=== PATIENT | female | born 1935 | race Caucasian/White ===

== ENCOUNTER 2017-03-21 17:30 | Inpatient (IN) | payer MEDICARE ==
[2017-03-21] VITALS (7 sets, daily range): BP systolic 154–221; BP diastolic 82–115
[~2017-03-21] VITALS: Ht 160 cm; Wt 75.9 kg
[~2017-03-21 17:30] MED LIST: ASPIRIN CHEWABL81 MG PO; ATENOLOL50 MG PO; Avapro300 MG PO; CLONIDINE0.2 MG PO; HYDROCODON-ACE1 EACH PO; LABETALOL HCL100 MG PO; LEVOTHYROXIN0.025 MG PO; LEVOTHYROXINE0.05 MG PO; NEXICLON X0.09 MG/ML PO; PERCOCET 325 MG1 TA2 PO; SIMVASTATIN5 MG PO; TARKA PO; TRIAMTERENE & H1 CAP PO; VERAPAMIL SR240 M1 PO; VITAMIN D50000 I3 PO
[2017-03-21 18:21] LABS: BASO # 0.1 10*3/uL (0.0-0.1); BASO % 1.3 % (0.0-1.0); EOS # 0.2 10*3/uL (0.0-0.4); EOS % 4.2 % (1.0-4.0); HEMATOCRIT 33.2 % (37.0-47.0); HEMOGLOBIN 10.8 g/dl (12.0-16.0); LYMPH % 24.8 % (27.0-41.0); MEAN CORPUSCULAR HGB CONC 32.5 g/dl (33.0-37.0); MEAN PLATELET VOLUME 10.8 fl (9.6-12.3); MONO # 0.3 10*3/uL (0.1-1.0); MONO % 6.5 % (3.0-9.0); NEUT # 2.4 10*3/uL (2.3-7.9); NEUT % 62.7 % (47.0-73.0); PLATELET COUNT AUTOMATED 153 10*3/uL (130-400); RED BLOOD COUNT 3.86 10*6/uL (4.10-5.10); RED CELL DISTRI WIDTH 14.2 % (0-14.5); WHITE BLOOD COUNT 3.8 10*3/uL (4.8-10.8)
[2017-03-21 18:32] LABS: ACT PARTIAL THROMBO TIME 25.9 SECONDS (20.8-31.5)
[2017-03-21 18:38] LABS: BUN 15 mg/dl (7-24); CHLORIDE 105 mmol/L (98-107); CREATININE 1.02 mg/dL (0.55-1.02); POTASSIUM 3.9 mmol/L (3.5-5.1); SODIUM 140 mmol/L (136-145)
[2017-03-21 18:39] LABS: TROPONIN I < 0.015 ng/ml (<0.045)
[2017-03-21] MEDS ORDERED: LIPITOR10 MG PO (21:13)
[2017-03-21] MEDS ORDERED: OMEPRAZOLE D/R20 MG PO (21:14)
[2017-03-21] MEDS ORDERED: CETIRIZINE10 MG PO (21:15)
[2017-03-21] MEDS ORDERED: HYDROCODONE-AC1 EAC1 PO (21:16)
[2017-03-22] VITALS: BP 177/110
[2017-03-22 00:56] VITALS: BP 210/110
[2017-03-22 06:34] LABS: ALBUMIN 3.8 gm/dl (3.1-4.5); BUN 15 mg/dl (7-24); CHLORIDE 104 mmol/L (98-107); CHOLESTEROL 124 mg/dL (<200); CREATININE 0.86 mg/dL (0.55-1.02); HDL CHOLESTEROL 51 mg/dl (40-60); LDL CHOLESTEROL 52 mg/dL (9-159); PHOSPHOROUS 3.7 mg/dL (2.5-4.9); POTASSIUM 3.8 mmol/L (3.5-5.1); SGOT/AST 16 IU/L (3-35); SGPT/ALT 14 U/L (12-78); SODIUM 142 mmol/L (136-145); TOTAL PROTEIN 6.5 gm/dL (6.4-8.2); TRIGLYCERIDES 107 mg/dl (<150); VLDL CHOLESTEROL 21 mg/dL (6-40)
[2017-03-22 06:36] LABS: BASO % 0.8 % (0.0-1.0); EOS # 0.1 10*3/uL (0.0-0.4); EOS % 3.9 % (1.0-4.0); HEMATOCRIT 30.9 % (37.0-47.0); HEMOGLOBIN 10.3 g/dl (12.0-16.0); LYMPH # 0.8 10*3/uL (1.3-4.4); LYMPH % 22.2 % (27.0-41.0); MEAN CELL VOLUME 85.4 fl (81.0-99.0); MEAN CORPUSCULAR HGB 28.5 pg (27.0-31.0); MEAN CORPUSCULAR HGB CONC 33.3 g/dl (33.0-37.0); MEAN PLATELET VOLUME 10.5 fl (9.6-12.3); MONO # 0.3 10*3/uL (0.1-1.0); NEUT # 2.3 10*3/uL (2.3-7.9); NEUT % 65.8 % (47.0-73.0); PLATELET COUNT AUTOMATED 147 10*3/uL (130-400); RED BLOOD COUNT 3.62 10*6/uL (4.10-5.10); RED CELL DISTRI WIDTH 14.2 % (0-14.5); WHITE BLOOD COUNT 3.6 10*3/uL (4.8-10.8)
[2017-03-22 06:39] LABS: ALKALINE PHOSPHATASE 84 U/L (45-117)
[2017-03-22 07:47] LABS: VITAMIN D, 25-HYDROXY 20.4 ng/mL (30-100)
[2017-03-22 08:28] VITALS: BP 148/84
[2017-03-22 12:03] VITALS: BP 138/88
[2017-03-22] MEDS ORDERED: VITAMIN D-32000 UNI1 PO (13:55)
[2017-03-22] MEDS ORDERED: B12,B-12,B 12500 MC1 PO (13:55)
[2017-03-22] MEDS ORDERED: CLONIDINE0.2 MG PO (13:55)
== END 2017-03-22 14:33 | disposition home or self-care (01) | DRG 305 ==
LOC: ED 17:30 → EDHOLD 19:01 → 5E 19:01
PROVIDERS: Emergency Medicine; Hospitalist
DX: I16.1 Hypertensive emergency (principal); I48.91 Unspecified atrial fibrillation; D64.9 Anemia, unspecified; D72.819 Decreased white blood cell count, unspecified; E03.9 Hypothyroidism, unspecified; E53.8 Deficiency of other specified B group vitamins; G43.909 Migraine, unspecified, not intractable, without status migrainosus; M54.5 Low back pain; G89.29 Other chronic pain; I77.1 Stricture of artery; M19.90 Unspecified osteoarthritis, unspecified site; I11.9 Hypertensive heart disease without heart failure; R91.1 Solitary pulmonary nodule; E55.9 Vitamin D deficiency, unspecified; Z90.89 Acquired absence of other organs; Z83.79 Family history of other diseases of the digestive system; Z88.6 Allergy status to analgesic agent; Z79.82 Long term (current) use of aspirin; Z79.899 Other long term (current) drug therapy; K59.09 Other constipation

== ENCOUNTER 2017-09-14 19:22 | Inpatient (IN) | payer MEDICARE ==
[~2017-09-14] VITALS: Ht 160 cm; Wt 74.8 kg
--- NOTE | ~2017-09-14 | EKG ---
[place], [place] ELECTROCARDIOGRAM REPORT NAME: DORIS JOVEL UNIT #: [id number] ROOM: 419 DOCTOR: EPIPHANY DRAFT REPORT BIRTHDATE: [birth year] [facility] Test Date: 2017-09-14 Test Time: 20:25:40 Pat Name: DORIS JOVEL Department: Room: [facility] Gender: F [employer]: EKG.GA : 1935 Requested By: DAVID LANGSTON Order Number: [id number] Reading MD: Graciela Fair MD Measurements Intervals [place] Rate: 76 P: ME: QRS: -9 QRSD: 83 T: 33 QT: 471 QTc: 530 Interpretive Statements Atrial fibrillation Borderline T wave abnormalities Prolonged QT interval Electronically Signed On 09-16-2017 11:10:08 PDT by Graciela Fair MD CM:EKGRPT:ELECTROCARDIOGRAM REPORT 24 1110 DAVID LANGSTON EPIPHANY DRAFT REPORT DAVID LANGSTON
--- NOTE | ~2017-09-14 | PR ---
[place], [place] [facility]GRESS NOTE [id number] UNIT #: [id number] ROOM: 419 DOCTOR: BENSON CHRISTIANSON MD BIRTHDATE: [birth year] DOS: 09/22/2017 SUBJECTIVE: Cynthia Hong was seen at her bedside today, 09/23/2017 with family in attendance. She is feeling well. Unfortunately, she has been noted to have draining from her incision. We were asked to consider decreasing the dose of Pradaxa. It is my understanding that you either used the drug or you do not. Low doses of the drug have never been shown to be effective and probably would not change the risk of bleeding. I asked that Dr. Norton be asked if she felt that the risk to the incision was greater than the patient's risk for DVT when she considered those options she said to continue the anticoagulation for now. The patient denies any palpitations, lightheadedness, syncope, orthopnea or PND. She is anxious to go to rehab within the next 24 hours. We have been able to wean her off of IV diltiazem and her heart rate remains controlled. PHYSICAL EXAMINATION: VITAL SIGNS: Today, her pulse is 98 and irregularly irregular. Blood pressure is 156/87. She is afebrile. NECK: Supple. She has no jugular distention. Carotids are full. LUNGS: Respirations are unlabored. Her chest is clear. HEART: Has an irregularly irregular rhythm without murmurs or gallops. ABDOMEN: Soft and normally active. EXTREMITIES: Showed trace edema. IMPRESSION: 1. Permanent atrial fibrillation. 2. Rapid ventricular response to atrial fibrillation, exacerbated by her recent fall, hip fracture and surgery. 3. Essential hypertension. 4. Mechanical fall with hip fracture, prompting current admission, the patient has had a hip fracture repair this admission. 5. Hypothyroidism. PLAN: I will switch her now from short acting diltiazem to diltiazem CD to simplify her medical regimen. I would prefer that she stay on the Pradaxa; however, if it looks like this is going to impede wound healing and if Dr. Norton feels that her risk for deep venous thrombosis is low, the drug can be stopped temporarily. It would be my preference that it be continued, however. Hopefully, she will be able to transfer to a rehab facility within the next 24 hours. I thank the hospitalist physicians for asking our advice regarding her care. [place], [place] PROGRESS NOTE NAME: CYNTHIA HONG UNIT #: [id number] ROOM: 419 DOCTOR: BENSON CHRISTIANSON MD BIRTHDATE: [birth year] BENSON CHRISTIANSON MD CM:PNTRANS [id number] BENSON CHRISTIANSON MD 09/24/17 1728 interface
--- NOTE | ~2017-09-14 | O ---
[place], [place] OPERATIVE NOTE [id number] UNIT #: [id number] ROOM: 419 DOCTOR: VITOR NORTON DO BIRTHDATE: [birth year] DOS: 09/18/2017 PREOPERATIVE DIAGNOSIS: Right hip femoral neck fracture with 100% displacement. POSTOPERATIVE DIAGNOSIS: Right hip femoral neck fracture with 100% displacement. PROCEDURE: Right hip hemiarthroplasty. SURGEON: Vitor Norton DO. BUTTON SEWER: Cristopher Penn. ANESTHESIA: Tyshawn Abrams CRNA. TYPE OF ANESTHESIA: General endotracheal intubation. INDICATIONS: The patient is an 82-year-old female with a history of fall at her home several days ago suffering a fracture of the right femoral neck with displacement. The risks and benefits of the procedure were explained to the patient and her family preoperatively. Preoperative labs and x-rays were obtained. Surgery was delayed several days due to mental status change and tachycardia from atrial fibrillation. Preoperative medical and cardiac optimization was obtained. PROCEDURE: The right hip was marked in the holding room. The patient was brought to the operative suite. A general anesthetic with endotracheal intubation was performed. The patient was placed in a lateral decubitus position and positioned with the peg board or [place] positioner. The timeout was performed. The patient received Rocephin 1 g IV piggyback. The right lower extremity was prepped and draped in the usual orthopedic fashion. The posterior or southern incision was planned. This was marked with a marking pen. The area was injected with Marcaine 0.5% with epinephrine. The incision was made sharply with a scalpel. Subcutaneous tissue was spread down to the level of the gluteus fascia. Gluteus fascia was divided along its fibers and gluteus muscle was divided bluntly along the fibers. The greater trochanteric bursa was identified and debrided. The extremity was internally rotated and the piriformis was identified and tagged. The short external rotators were released from their insertion on the greater trochanter and retracted posteriorly. The capsule was identified and released in a T-shaped fashion. The fracture site was identified. The calcar cut was made with an oscillating saw. Osteotome was used to complete the cut. The femoral head was removed using a large Steinmann pin and a skid. This was taken to the back table to be measured. The box osteotome followed by the lateralizing reamer were utilized to aid in positioning of the broaches. The broaches were placed with attention to anteversion beginning with an 8 and progressing to a 13. Size 13 was noted to have adequate fit and fill as well as stability. [place], [place] OPERATIVE NOTE NAME: DORIS JOVEL UNIT #: [id number] ROOM: [facility] DOCTOR: VITOR NORTON DO BIRTHDATE: [birth year] The trials were utilized with a negative neck length and a neutral neck length with a 28 mm inner diameter and a 49 mm outer diameter bipolar trial. The hip was reduced and taken through a range of motion with extension and flexion past 90, internal and external rotation as well as shucking. There was noted to be excellent stability about the hip. The area was copiously irrigated with normal saline. The trials were removed. Further irrigation was performed. The acetabulum was evaluated for any remaining bony debris. The prosthesis was placed using a Biomet Echo standard femoral stem, size 13, which was pressfit into place. This was followed by cold welding of the modular head component, 28 mm neutral length with the bipolar 49 mm outer and 28 mm inner diameter. When this was cold welded into place, the stability was evaluated manually and found to be intact. The hip was then taken again through the range of motion with flexion past 90, internal and external rotation and shucking. There was noted to be excellent stability and range of motion. The area was again irrigated with normal saline and closed in a layered fashion with 0 Vicryl for the short external rotators followed by 0 Vicryl for the gluteus fascia, 2-0 Vicryl for the adipose layer and skin shy. The area was again injected with Marcaine 0.5% with epinephrine. The dressing was applied with Xeroform, 4 x 4s, ABD and Tegaderm. The abduction pillow was put into place. The patient was returned to a supine position. The anesthetic was reversed. The patient was extubated and taken to recovery room in satisfactory condition. Sponge and needle count correct. ESTIMATED BLOOD LOSS: 200 mL. SPECIMENS: Femoral head. DRAINS: None. PACKING: None. IMPLANTS: Echo Bi-Metric hip system standard femoral stem, size 13, RingLoc bipolar hip system, 29 mm outer diameter and 28 mm inner diameter, modular head component 28 mm and 0 length. FINDINGS: Fracture of the right femoral neck with displacement. COMPLICATIONS: None. [place], [place] OPERATIVE NOTE NAME: ALONSOTOLU SerranoDORIS E UNIT #: [id number] ROOM: [facility] DOCTOR: VITOR NORTON DO BIRTHDATE: [birth year] VITOR NORTON DO CM:OPRECORD:OPERATIVE NOTE [id number] VITOR NORTON DO 09/18/17 1100 interface
--- NOTE | ~2017-09-14 | PR ---
[place], [place] PROGRESS NOTE [id number] UN[facility] #: [id number] ROOM: 419 DOCTOR: BENSON CHRISTIANSON MD BIRTHDATE: [birth year] DOS: 09/21/2017 CARDIOLOGY PROGRESS NOTE The patient was seen at her bedside today 09/21/2017 with her daughter in attendance. She is now several days post-repair of her hip fracture. We are still adjusting medications to control the rate response to her atrial fibrillation. She was placed on labetalol as she was on prior to her admission, but her heart rate still remains over 100 at rest when diltiazem is weaned. In order to protect her from a DVT as well as stroke prophylaxis, I did place her on a direct oral anticoagulant yesterday. The family insisted that we use an agent that has a reversal drug available, so I started Pradaxa 150 mg twice a day, Praxbind is available and works immediately to reverse the effects dabigatran. PHYSICAL EXAMINATION: VITAL SIGNS: Today, her pulse is 100 and irregularly irregular. Blood pressure is 132/60. She is afebrile. She weighs 74.8 kg and has a body mass index 29.2. HEENT: Normocephalic and atraumatic. Extraocular muscles are intact. Sclerae are clear. Pupils are equal, round and react to light. Oral mucosa is moist. Tongue is midline. NECK: Supple. She has no jugular distention or hepatojugular reflux. Carotids are full. LUNGS: Respirations are unlabored. Chest is clear to auscultation and percussion. HEART: Has an irregularly irregular rhythm without murmurs or gallops. ABDOMEN: Soft and normally active. EXTREMITIES: Showed trace edema. IMPRESSION: 1. Permanent atrial fibrillation. 2. Rapid ventricular response to atrial fibrillation, exacerbated by her recent fall, hip fracture, and surgery. 3. Essential hypertension. 4. Mechanical fall with hip fracture, prompting current admission. The patient is status post hip fracture repair. 5. Hypothyroidism. PLAN: I will add oral diltiazem to her regimen. Hopefully, we can wean her off the intravenous diltiazem and she can be discharged to rehab after that. We will continue her dabigatran for stroke and DVT prophylaxis. I thank the hospitalist physicians for asking our advice regarding her care. [place], [place] PROGRESS NOTE NAME: DORIS JOVEL UNIT #: [id number] ROOM: 419 DOCTOR: BENSON CHRISTIANSON MD BIRTHDATE: [birth year] BENSON CHRISTIANSON MD CM:PNTRANS [id number] BENSON CHRISTIANSON MD 09/22/17 0315 interface
--- NOTE | ~2017-09-14 | PR ---
[place], [place] PROGRESS NOTE NAME: DORIS JOVEL [facility] #: [id number] UNIT #: [id number] ROOM: 419 DOCTOR: BENSON CHRISTIANSON MD BIRTHDATE: [birth year] DOS: 09/17/2017 CARDIOLOGY PROGRESS NOTE SUBJECTIVE: The patient was seen at her bedside today with her daughter and granddaughter in attendance. She is an 82-year-old woman who does have a history of atrial fibrillation, but has refused anticoagulation. She does take an aspirin. She presents to the hospital now after a trip and fall injury that resulted in a right hip fracture. The accident occurred on 09/15/2017 but repair of the fracture has been delayed because the patient was bradycardic and had altered mental status. Today, she is awake and alert. Her white count has been elevated at 14,000, but she is being treated for urinary tract infection. A CAT scan of the chest, abdomen and pelvis showed no acute pathology such as pneumonia, etc. PHYSICAL EXAMINATION: VITAL SIGNS: Her pulse is 110 and irregularly irregular. Blood pressure is 160/80. She is afebrile. She weighs 74.8 kilograms. NECK: Supple. She has no jugular distention. Carotids are full. LUNGS: Respirations are unlabored. Her chest has decreased breath sounds at the bases, but otherwise is clear. HEART: Has an irregularly irregular rhythm. She has no obvious murmurs or gallops. ABDOMEN: Soft and normally active. EXTREMITIES: Showed no edema. The right leg is foreshortened and externally rotated. IMPRESSION: 1. Mechanical fall. 2. Closed right hip fracture. 3. Chronic atrial fibrillation (possibly permanent). 4. History of hypertension. 5. History of hypothyroidism. PLAN: The patient has known about atrial fibrillation for some time, but she refuses all anticoagulants aside from aspirin. She does note that she has been informed that she will require anticoagulation postoperatively to prevent DVT, but it is not clear if she will allow us to continue it long-term. For now, we will work to control her heart rate. I discussed her case with Dr. Emerson Alicea. Since she is going to surgery today, I would like to treat her with IV medications and I think diltiazem would be the easiest to control. We will give her a small bolus and infusion and then I think that she can go to surgery safely from a cardiac standpoint. We will continue to assist with control of her heart rate postoperatively and I would think that she would be an excellent candidate for a direct oral anticoagulant such as rivaroxaban post-surgery to help prevent DVT immediately and help prevent stroke long-term. We thank the hospitalist physicians for asking our advice regarding her care. [place], [place] PROGRESS NOTE NAME: TOLU JOVELASHLYN Tamez UNIT #: [id number] ROOM: 419 DOCTOR: BENSON CHRISTIANSON MD BIRTHDATE: [birth year] BENSON CHRISTIANSON MD CM:PNTRANS [id number] BENSON CHRISTIANSON MD 09/17/17 2003 interface
--- NOTE | ~2017-09-14 | PR ---
[place], [place] PROGRESS NOTE NAME: DORIS JOVEL UNIT #: [id number] ROOM: 419 DOCTOR: BENSON CHRISTIANSON MD BIRTHDATE: [birth year] DOS: CARDIOLOGY PROGRESS NOTE SUBJECTIVE: The patient was seen at her bedside today, 09/22/2017 with family member in attendance. She is awake and alert and in very good spirits. She states that she feels much better and has been able to ambulate around the room with assistance and a walker. She is using a bedside commode without difficulty. Her monitor does show that her rates have been much better controlled and currently at rest, her heart rate is about 85. Unfortunately, she still is on a small dose of diltiazem intravenously. PHYSICAL EXAMINATION: VITAL SIGNS: Today, her pulse is 85 and irregularly irregular. Blood pressure is 150/88. She weighs 74.8 kg and has a body mass index of 29.2. NECK: Supple. She has no jugular distention. Carotids are full. LUNGS: Respirations are unlabored. Her chest is clear. HEART: Has an irregularly irregular rhythm without murmurs or gallops. ABDOMEN: Benign. EXTREMITIES: Showed no edema. She does seem to be doing better from a cardiac standpoint. PROBLEMS: Include: 1. Permanent atrial fibrillation. 2. Rapid ventricular response to atrial fibrillation, exacerbated by her recent fall, hip fracture and surgery. 3. Essential hypertension. 4. Mechanical fall with hip fracture, prompting current admission. The patient has had her hip fracture repaired. 5. Hypothyroidism. PLAN: We will increase her oral diltiazem and stop intravenous diltiazem today. Hopefully, she can be discharged to home within the next 24-48 hours. She will continue dabigatran for stroke and DVT prophylaxis. I thank the hospitalist physicians for asking our advice regarding her care. [place], [place] PROGRESS NOTE NAME: ALONSOTOLU SerranoDORIS E UNIT #: [id number] ROOM: 419 DOCTOR: BENSON CHRISTIANSON MD BIRTHDATE: [birth year] BENSON CHRISTIANSON MD CM:PNTRANS [id number] BENSON CHRISTIANSON MD 09/23/17 1148 interface
[~2017-09-14 19:22] MED LIST changes: +B12,B-12,B 12500 MC1 PO; +CETIRIZINE10 MG PO; +HYDROCODONE-AC1 EAC1 PO; +LIPITOR10 MG PO; +OMEPRAZOLE D/R20 MG PO; +VITAMIN D-32000 UNI1 PO
[2017-09-14 19:40] VITALS: BP 120/83
[2017-09-14 20:30] VITALS: BP 146/60
[2017-09-14 21:28] VITALS: BP 150/94
[2017-09-14 21:36] LABS: BASO % 0.2 % (0.0-1.0); EOS % 0.3 % (1.0-4.0); HEMATOCRIT 36.7 % (37.0-47.0); HEMOGLOBIN 11.6 g/dl (12.0-16.0); LYMPH # 0.8 10*3/uL (1.3-4.4); LYMPH % 6.6 % (27.0-41.0); MEAN CELL VOLUME 90.8 fl (81.0-99.0); MEAN CORPUSCULAR HGB 28.7 pg (27.0-31.0); MEAN CORPUSCULAR HGB CONC 31.6 g/dl (33.0-37.0); MEAN PLATELET VOLUME 10.6 fl (9.6-12.3); MONO # 0.5 10*3/uL (0.1-1.0); MONO % 4.5 % (3.0-9.0); NEUT # 10.3 10*3/uL (2.3-7.9); PLATELET COUNT AUTOMATED 163 10*3/uL (130-400); RED BLOOD COUNT 4.04 10*6/uL (4.10-5.10); RED CELL DISTRI WIDTH 14.4 % (0-14.5); WHITE BLOOD COUNT 11.7 10*3/uL (4.8-10.8)
[2017-09-14 21:45] LABS: ACT PARTIAL THROMBO TIME 24.3 SECONDS (20.8-31.5)
[2017-09-14 22:00] VITALS: BP 182/83; BP 183/83
[2017-09-14 22:01] LABS: ALBUMIN 3.6 gm/dl (3.1-4.5); ALKALINE PHOSPHATASE 82 U/L (45-117); BUN 18 mg/dl (7-24); CHLORIDE 111 mmol/L (98-107); CREATININE 0.92 mg/dL (0.55-1.02); SGOT/AST 22 IU/L (3-35); SGPT/ALT 19 U/L (12-78); SODIUM 141 mmol/L (136-145); TOTAL PROTEIN 6.4 gm/dL (6.4-8.2)
[2017-09-14 22:02] LABS: TROPONIN I < 0.015 ng/ml (<0.045)
[2017-09-14] MEDS ORDERED: ZYRTEC10 MG PO (23:08)
[2017-09-14] MEDS ORDERED: PRILOSEC20 M1 PO (23:10)
[2017-09-14] MEDS ORDERED: ASPIRIN CHEWABL81 MG PO (23:46)
[2017-09-15] VITALS: BP 176/79
[2017-09-15 00:05] VITALS: BP 154/94
[2017-09-15 06:54] LABS: HEMATOCRIT 39.9 % (37.0-47.0); HEMOGLOBIN 12.7 g/dl (12.0-16.0); MEAN CELL VOLUME 89.5 fl (81.0-99.0); MEAN CORPUSCULAR HGB 28.5 pg (27.0-31.0); MEAN CORPUSCULAR HGB CONC 31.8 g/dl (33.0-37.0); MEAN PLATELET VOLUME 10.7 fl (9.6-12.3); PLATELET COUNT AUTOMATED 160 10*3/uL (130-400); RED BLOOD COUNT 4.46 10*6/uL (4.10-5.10); RED CELL DISTRI WIDTH 14.4 % (0-14.5)
[2017-09-15 07:22] LABS: OVALOCYTES FEW; PLATELET SUFFICIENCY NORMAL (NORMAL); POLYCHROMASIA SLIGHT; TOTAL CELLS COUNTED 100 #CELLS
[2017-09-15 07:24] LABS: ALBUMIN 3.7 gm/dl (3.1-4.5); ALKALINE PHOSPHATASE 85 U/L (45-117); BUN 19 mg/dl (7-24); CHLORIDE 108 mmol/L (98-107); CHOLESTEROL 122 mg/dL (<200); CREATININE 0.94 mg/dL (0.55-1.02); HDL CHOLESTEROL 60 mg/dl (40-60); LDL CHOLESTEROL 48 mg/dL (9-159); POTASSIUM 4.3 mmol/L (3.5-5.1); SGOT/AST 26 IU/L (3-35); SGPT/ALT 18 U/L (12-78); SODIUM 143 mmol/L (136-145); TOTAL PROTEIN 6.8 gm/dL (6.4-8.2); TRIGLYCERIDES 70 mg/dl (<150); VLDL CHOLESTEROL 14 mg/dL (6-40)
[2017-09-15 07:30] LABS: THYROID STIM HORMONE (HS) 0.919 uIU/ml (0.358-4.75)
[2017-09-15 08:29] LABS: VITAMIN D, 25-HYDROXY 23.4 ng/mL (30-100)
[2017-09-15 09:52] LABS: BILIRUBIN NEGATIVE (NEGATIVE); BLOOD 2+ (NEGATIVE); CLARITY SL CLOUDY (CLEAR); COLOR YELLOW (YELLOW); GLUCOSE NEGATIVE (NEGATIVE); KETONE TRACE (NEGATIVE); LEUKO ESTERASE TRACE (NEGATIVE); NITRITE NEGATIVE (NEGATIVE); SPECIFIC GRAVITY >= 1.030 (1.005-1.030); UROBILINOGEN 0.2 E.U./dl (0.2-1.0)
[2017-09-15 10:03] LABS: CALCIUM OXALATE CRYSTALS 1+; MUCOUS 1+
[2017-09-15 12:00] VITALS: BP 180/82
[2017-09-15 16:00] VITALS: BP 152/92
[2017-09-15] MEDS ORDERED: CLONIDINE0.2 MG PO (19:49)
[2017-09-15] MEDS ORDERED: VERAPAMIL HYDR300 MG PO (19:51)
[2017-09-15 20:00] VITALS: BP 132/70
[2017-09-16] VITALS (7 sets, daily range): BP systolic 105–153; BP diastolic 40–89
[2017-09-16 07:14] LABS: BASO % 0.2 % (0.0-1.0); EOS # 0.1 10*3/uL (0.0-0.4); EOS % 0.8 % (1.0-4.0); HEMATOCRIT 34.4 % (37.0-47.0); LYMPH # 0.9 10*3/uL (1.3-4.4); LYMPH % 6.2 % (27.0-41.0); MEAN CELL VOLUME 92.5 fl (81.0-99.0); MEAN CORPUSCULAR HGB 28.5 pg (27.0-31.0); MEAN CORPUSCULAR HGB CONC 30.8 g/dl (33.0-37.0); MEAN PLATELET VOLUME 10.9 fl (9.6-12.3); MONO % 7.2 % (3.0-9.0); NEUT % 84.3 % (47.0-73.0); RED BLOOD COUNT 3.72 10*6/uL (4.10-5.10); RED CELL DISTRI WIDTH 14.6 % (0-14.5); WHITE BLOOD COUNT 14.2 10*3/uL (4.8-10.8)
[2017-09-16 07:17] LABS: HEMOGLOBIN 10.6 g/dl (12.0-16.0); PLATELET COUNT AUTOMATED 121 10*3/uL (130-400)
[2017-09-16 07:49] LABS: POTASSIUM 4.9 mmol/L (3.5-5.1)
[2017-09-16 08:07] LABS: CREATININE 1.28 mg/dL (0.55-1.02); PHOSPHOROUS 4.1 mg/dL (2.5-4.9)
[2017-09-17] VITALS: BP 161/80
[2017-09-17 06:21] LABS: BASO % 0.1 % (0.0-1.0); EOS # 0.1 10*3/uL (0.0-0.4); EOS % 0.3 % (1.0-4.0); HEMATOCRIT 38.1 % (37.0-47.0); HEMOGLOBIN 12.1 g/dl (12.0-16.0); LYMPH # 0.9 10*3/uL (1.3-4.4); LYMPH % 6.4 % (27.0-41.0); MEAN CELL VOLUME 90.7 fl (81.0-99.0); MEAN CORPUSCULAR HGB 28.8 pg (27.0-31.0); MEAN CORPUSCULAR HGB CONC 31.8 g/dl (33.0-37.0); MEAN PLATELET VOLUME 11.6 fl (9.6-12.3); MONO # 1.1 10*3/uL (0.1-1.0); MONO % 7.2 % (3.0-9.0); NEUT # 12.4 10*3/uL (2.3-7.9); NEUT % 85.5 % (47.0-73.0); PLATELET COUNT AUTOMATED 104 10*3/uL (130-400); RED CELL DISTRI WIDTH 14.5 % (0-14.5); WHITE BLOOD COUNT 14.6 10*3/uL (4.8-10.8)
[2017-09-17 06:53] LABS: ALBUMIN 2.7 gm/dl (3.1-4.5); ALKALINE PHOSPHATASE 68 U/L (45-117); BUN 29 mg/dl (7-24); CHLORIDE 107 mmol/L (98-107); POTASSIUM 4.7 mmol/L (3.5-5.1); SGOT/AST 36 IU/L (3-35); SGPT/ALT 23 U/L (12-78); SODIUM 136 mmol/L (136-145)
[2017-09-17 08:00] VITALS: BP 152/88
[2017-09-17 12:00] VITALS: BP 173/86
[2017-09-17 14:26] VITALS: BP 162/88
[2017-09-17 16:00] VITALS: BP 122/89
[2017-09-17 20:00] VITALS: BP 130/86
[2017-09-18] VITALS (17 sets, daily range): BP systolic 130–186; BP diastolic 70–102
[2017-09-18 05:29] LABS: BASO % 0.2 % (0.0-1.0); EOS % 0.3 % (1.0-4.0); HEMATOCRIT 37.9 % (37.0-47.0); HEMOGLOBIN 12.1 g/dl (12.0-16.0); LYMPH # 0.5 10*3/uL (1.3-4.4); LYMPH % 4.4 % (27.0-41.0); MEAN CELL VOLUME 88.8 fl (81.0-99.0); MEAN CORPUSCULAR HGB 28.3 pg (27.0-31.0); MEAN CORPUSCULAR HGB CONC 31.9 g/dl (33.0-37.0); MEAN PLATELET VOLUME 11.7 fl (9.6-12.3); MONO # 0.8 10*3/uL (0.1-1.0); MONO % 6.7 % (3.0-9.0); NEUT # 10.7 10*3/uL (2.3-7.9); NEUT % 87.9 % (47.0-73.0); PLATELET COUNT AUTOMATED 133 10*3/uL (130-400); RED BLOOD COUNT 4.27 10*6/uL (4.10-5.10); RED CELL DISTRI WIDTH 14.3 % (0-14.5); WHITE BLOOD COUNT 12.2 10*3/uL (4.8-10.8)
[2017-09-18 05:46] LABS: BUN 23 mg/dl (7-24); CHLORIDE 108 mmol/L (98-107); CREATININE 0.57 mg/dL (0.55-1.02); POTASSIUM 3.8 mmol/L (3.5-5.1); SODIUM 140 mmol/L (136-145)
[2017-09-19] VITALS (14 sets, daily range): BP systolic 148–183; BP diastolic 76–90
[2017-09-19 06:16] LABS: BUN 26 mg/dl (7-24); CHLORIDE 107 mmol/L (98-107); POTASSIUM 4.1 mmol/L (3.5-5.1); SODIUM 140 mmol/L (136-145)
[2017-09-19 08:05] LABS: BASO % 0.1 % (0.0-1.0); HEMATOCRIT 33.5 % (37.0-47.0); HEMOGLOBIN 10.8 g/dl (12.0-16.0); LYMPH # 0.6 10*3/uL (1.3-4.4); LYMPH % 5.3 % (27.0-41.0); MEAN CELL VOLUME 88.4 fl (81.0-99.0); MEAN CORPUSCULAR HGB 28.5 pg (27.0-31.0); MEAN CORPUSCULAR HGB CONC 32.2 g/dl (33.0-37.0); MEAN PLATELET VOLUME 11.5 fl (9.6-12.3); MONO # 0.8 10*3/uL (0.1-1.0); MONO % 8.1 % (3.0-9.0); NEUT # 8.9 10*3/uL (2.3-7.9); NEUT % 85.7 % (47.0-73.0); RED BLOOD COUNT 3.79 10*6/uL (4.10-5.10); RED CELL DISTRI WIDTH 14.7 % (0-14.5); WHITE BLOOD COUNT 10.4 10*3/uL (4.8-10.8)
[2017-09-19 08:06] LABS: PLATELET COUNT AUTOMATED 175 10*3/uL (130-400)
[2017-09-19 10:47] LABS: BILIRUBIN NEGATIVE (NEGATIVE); BLOOD TRACE-INTACT (NEGATIVE); CLARITY CLEAR (CLEAR); COLOR YELLOW (YELLOW); GLUCOSE NEGATIVE (NEGATIVE); KETONE 1+ (NEGATIVE); LEUKO ESTERASE NEGATIVE (NEGATIVE); NITRITE NEGATIVE (NEGATIVE); PH 5.5 (5.0-9.0); UROBILINOGEN 0.2 E.U./dl (0.2-1.0)
[2017-09-19 11:14] LABS: CALCIUM OXALATE CRYSTALS 1+
[2017-09-20] VITALS (12 sets, daily range): BP systolic 132–173; BP diastolic 62–86
[2017-09-20 06:26] LABS: BASO % 0.1 % (0.0-1.0); HEMATOCRIT 29.2 % (37.0-47.0); HEMOGLOBIN 9.5 g/dl (12.0-16.0); LYMPH # 0.8 10*3/uL (1.3-4.4); LYMPH % 9.7 % (27.0-41.0); MEAN CORPUSCULAR HGB CONC 32.5 g/dl (33.0-37.0); MEAN PLATELET VOLUME 11.5 fl (9.6-12.3); MONO # 0.8 10*3/uL (0.1-1.0); MONO % 9.4 % (3.0-9.0); NEUT # 6.8 10*3/uL (2.3-7.9); NEUT % 79.3 % (47.0-73.0); PLATELET COUNT AUTOMATED 185 10*3/uL (130-400); RED BLOOD COUNT 3.28 10*6/uL (4.10-5.10); RED CELL DISTRI WIDTH 14.9 % (0-14.5); WHITE BLOOD COUNT 8.6 10*3/uL (4.8-10.8)
[2017-09-20 06:34] LABS: BUN 23 mg/dl (7-24); CHLORIDE 104 mmol/L (98-107); CREATININE 0.74 mg/dL (0.55-1.02); POTASSIUM 3.8 mmol/L (3.5-5.1); SODIUM 137 mmol/L (136-145)
[2017-09-21] VITALS (12 sets, daily range): BP systolic 130–158; BP diastolic 60–84
[2017-09-21 06:15] LABS: BASO % 0.1 % (0.0-1.0); EOS # 0.1 10*3/uL (0.0-0.4); HEMATOCRIT 28.9 % (37.0-47.0); HEMOGLOBIN 9.3 g/dl (12.0-16.0); LYMPH # 1.2 10*3/uL (1.3-4.4); LYMPH % 16.5 % (27.0-41.0); MEAN CELL VOLUME 88.7 fl (81.0-99.0); MEAN CORPUSCULAR HGB 28.5 pg (27.0-31.0); MEAN CORPUSCULAR HGB CONC 32.2 g/dl (33.0-37.0); MEAN PLATELET VOLUME 10.7 fl (9.6-12.3); MONO # 0.8 10*3/uL (0.1-1.0); MONO % 10.6 % (3.0-9.0); NEUT % 69.4 % (47.0-73.0); PLATELET COUNT AUTOMATED 182 10*3/uL (130-400); RED BLOOD COUNT 3.26 10*6/uL (4.10-5.10); RED CELL DISTRI WIDTH 14.8 % (0-14.5); WHITE BLOOD COUNT 7.2 10*3/uL (4.8-10.8)
[2017-09-22] VITALS (11 sets, daily range): BP systolic 107–156; BP diastolic 70–88
[2017-09-23] VITALS: BP 158/86
[2017-09-23 06:22] LABS: BASO % 0.2 % (0.0-1.0); EOS # 0.3 10*3/uL (0.0-0.4); EOS % 4.6 % (1.0-4.0); HEMATOCRIT 27.6 % (37.0-47.0); LYMPH # 1.1 10*3/uL (1.3-4.4); LYMPH % 16.6 % (27.0-41.0); MEAN CELL VOLUME 88.2 fl (81.0-99.0); MEAN CORPUSCULAR HGB 28.8 pg (27.0-31.0); MEAN CORPUSCULAR HGB CONC 32.6 g/dl (33.0-37.0); MEAN PLATELET VOLUME 10.9 fl (9.6-12.3); MONO # 0.4 10*3/uL (0.1-1.0); MONO % 5.9 % (3.0-9.0); NEUT # 4.4 10*3/uL (2.3-7.9); NEUT % 69.7 % (47.0-73.0); RED BLOOD COUNT 3.13 10*6/uL (4.10-5.10); RED CELL DISTRI WIDTH 15.2 % (0-14.5); WHITE BLOOD COUNT 6.3 10*3/uL (4.8-10.8)
[2017-09-23 06:23] LABS: PLATELET COUNT AUTOMATED 265 10*3/uL (130-400)
[2017-09-23 06:30] LABS: BUN 7 mg/dl (7-24); CHLORIDE 109 mmol/L (98-107); CREATININE 0.52 mg/dL (0.55-1.02); POTASSIUM 3.6 mmol/L (3.5-5.1); SODIUM 143 mmol/L (136-145)
[2017-09-23 08:00] VITALS: BP 160/88
[2017-09-23 12:00] VITALS: BP 156/87
[2017-09-23 16:00] VITALS: BP 156/81
[2017-09-23 20:00] VITALS: BP 145/94
[2017-09-24] VITALS: BP 154/76
[2017-09-24] MEDS ORDERED: HYDROCODONE-AC1 EAC1 PO (10:19)
[2017-09-24] MEDS ORDERED: DILTIAZEM 24HR300 M1 PO (10:19)
[2017-09-24] MEDS ORDERED: PRADAXA150 MG PO (10:19)
[2017-09-24 12:00] VITALS: BP 156/97
== END 2017-09-24 14:52 | disposition other institution (70) | DRG 469 ==
LOC: ED 19:22 → EDHOLD 21:06 → 4E 21:06
PROVIDERS: Emergency Medicine; Internal Medicine; Nurse Practitioner Family; Orthopaedic Surgery
PROC: 0SRR0JZ Replacement of Right Hip Joint, Femoral Surface with Synthetic Substitute, Open Approach (ICD-10-PCS; principal; 2017-09-18)
DX: S72.001A Fracture of unspecified part of neck of right femur, initial encounter for closed fracture (principal); N17.0 Acute kidney failure with tubular necrosis; G93.41 Metabolic encephalopathy; E44.0 Moderate protein-calorie malnutrition; I11.0 Hypertensive heart disease with heart failure; I27.20 Pulmonary hypertension, unspecified; I50.32 Chronic diastolic (congestive) heart failure; I48.91 Unspecified atrial fibrillation; D64.9 Anemia, unspecified; S09.90XA Unspecified injury of head, initial encounter; N39.0 Urinary tract infection, site not specified; Z68.29 Body mass index [BMI] 29.0-29.9, adult; D72.829 Elevated white blood cell count, unspecified; E03.9 Hypothyroidism, unspecified; E53.8 Deficiency of other specified B group vitamins; G89.29 Other chronic pain; M54.9 Dorsalgia, unspecified; K21.9 Gastro-esophageal reflux disease without esophagitis; E55.9 Vitamin D deficiency, unspecified; E86.0 Dehydration; R19.7 Diarrhea, unspecified; E78.5 Hyperlipidemia, unspecified; W01.0XXA Fall on same level from slipping, tripping and stumbling without subsequent striking against object, initial encounter; R00.1 Bradycardia, unspecified; R00.0 Tachycardia, unspecified; T44.7X5A Adverse effect of beta-adrenoreceptor antagonists, initial encounter; Z88.6 Allergy status to analgesic agent; Z79.899 Other long term (current) drug therapy; Z79.82 Long term (current) use of aspirin; Z90.89 Acquired absence of other organs; Z83.79 Family history of other diseases of the digestive system; Z81.8 Family history of other mental and behavioral disorders; Y93.89 Activity, other specified; Y92.89 Other specified places as the place of occurrence of the external cause; Y99.8 Other external cause status

== ENCOUNTER → 2017-11-26 | Outpatient (CLI) | payer MEDICARE ==
[~2017-11-26] MED LIST changes: +DILTIAZEM 24HR300 M1 PO; +PRADAXA150 MG PO; +PRILOSEC20 M1 PO; +VERAPAMIL HYDR300 MG PO; +ZYRTEC10 MG PO
== END | disposition home or self-care (01) ==
LOC: ORTHO 02:18
DX: M84.451D Pathological fracture, right femur, subsequent encounter for fracture with routine healing (principal); M85.88 Other specified disorders of bone density and structure, other site; Z91.81 History of falling

== ENCOUNTER 2020-06-10 13:34 | Inpatient (IN) | payer MEDICARE ==
[~2020-06-10] VITALS: Ht 160 cm; Wt 71.3 kg
[2020-06-10 13:42] VITALS: BP 108/62
[2020-06-10 14:16] LABS: BASO % 0.2 % (0.0-1.0); HEMATOCRIT 35.5 % (37.0-47.0); LYMPH # 0.8 10*3/uL (1.3-4.4); MEAN CELL VOLUME 90.8 fl (81.0-99.0); MEAN CORPUSCULAR HGB 28.4 pg (27.0-31.0); MEAN CORPUSCULAR HGB CONC 31.3 g/dl (33.0-37.0); MEAN PLATELET VOLUME 11.4 fl (9.6-12.3); MONO # 0.4 10*3/uL (0.1-1.0); MONO % 5.8 % (3.0-9.0); NEUT # 5.4 10*3/uL (2.3-7.9); NEUT % 81.7 % (47.0-73.0); PLATELET COUNT AUTOMATED 131 10*3/uL (130-400); RED BLOOD COUNT 3.91 10*6/uL (4.10-5.10); WHITE BLOOD COUNT 6.6 10*3/uL (4.8-10.8)
[2020-06-10 14:29] LABS: ACT PARTIAL THROMBO TIME 32.7 SECONDS (20.0-32.1); ALBUMIN 3.1 gm/dl (3.1-4.5); CREATININE 1.61 mg/dL (0.55-1.02); POTASSIUM 3.5 mmol/L (3.5-5.1); TOTAL PROTEIN 6.9 gm/dL (6.4-8.2); TROPONIN I 0.026 ng/ml (<0.045)
[2020-06-10 14:34] LABS: BURR CELLS FEW; PLATELET SUFFICIENCY NORMAL (NORMAL); TOTAL CELLS COUNTED 100 #CELLS
[2020-06-10 14:35] LABS: OVALOCYTES FEW
[2020-06-10 16:30] LABS: BILIRUBIN 1+ (Negative); BLOOD Negative (Negative); CLARITY Cloudy (Clear); COLOR Dark Yellow (Yellow); GLUCOSE Negative (Negative); KETONE Trace (Negative); LEUKO ESTERASE 3+ (Negative); NITRITE Negative (Negative); SPECIFIC GRAVITY >= 1.030 (1.001-1.030)
[2020-06-10 17:13] LABS: EPITHELIAL CELLS 31-40; WBC 51-100 wbc/hpf (0-5)
[2020-06-10 18:38] VITALS: BP 156/85
[2020-06-10 21:00] VITALS: BP 180/77
[2020-06-11] VITALS: BP 137/72
[2020-06-11 06:57] LABS: EOS % 0.5 % (1.0-4.0); LYMPH # 0.5 10*3/uL (1.3-4.4); LYMPH % 11.5 % (27.0-41.0); MEAN CELL VOLUME 90.7 fl (81.0-99.0); MEAN CORPUSCULAR HGB 28.3 pg (27.0-31.0); MEAN CORPUSCULAR HGB CONC 31.3 g/dl (33.0-37.0); MEAN PLATELET VOLUME 11.8 fl (9.6-12.3); MONO # 0.3 10*3/uL (0.1-1.0); MONO % 7.5 % (3.0-9.0); NEUT # 3.4 10*3/uL (2.3-7.9); NEUT % 80.5 % (47.0-73.0); PLATELET COUNT AUTOMATED 118 10*3/uL (130-400); RED BLOOD COUNT 3.53 10*6/uL (4.10-5.10); WHITE BLOOD COUNT 4.3 10*3/uL (4.8-10.8)
[2020-06-11 07:27] LABS: CREATININE 1.14 mg/dL (0.55-1.02); POTASSIUM 3.3 mmol/L (3.5-5.1)
[2020-06-11 07:34] LABS: THYROID STIM HORMONE (HS) 1.89 uIU/ml (0.358-4.75)
[2020-06-11 08:00] VITALS: BP 152/90
[2020-06-11 10:47] LABS: FERRITIN 107.5 ng/mL (10.0-291.0); VITAMIN D, 25-HYDROXY 26.6 ng/mL (30-100)
[2020-06-11 12:00] VITALS: BP 148/64
[2020-06-11 16:00] VITALS: BP 121/53
[2020-06-11 20:00] VITALS: BP 164/65
[2020-06-12] VITALS: BP 158/57; BP 179/81
[2020-06-12 05:54] LABS: BUN 21 mg/dl (7-24); CHLORIDE 108 mmol/L (98-107); CREATININE 0.87 mg/dL (0.55-1.02); SODIUM 139 mmol/L (136-145)
[2020-06-12 06:02] LABS: POTASSIUM 4.6 mmol/L (3.5-5.1)
[2020-06-12 06:12] LABS: HEMATOCRIT 32.7 % (37.0-47.0); MEAN CELL VOLUME 90.1 fl (81.0-99.0); MEAN CORPUSCULAR HGB 28.7 pg (27.0-31.0); MEAN CORPUSCULAR HGB CONC 31.8 g/dl (33.0-37.0); MEAN PLATELET VOLUME 12.1 fl (9.6-12.3); PLATELET COUNT AUTOMATED 132 10*3/uL (130-400); RED BLOOD COUNT 3.63 10*6/uL (4.10-5.10); RED CELL DISTRI WIDTH 14.6 % (0-14.5)
[2020-06-12 06:37] LABS: WHITE BLOOD COUNT 1.6 10*3/uL (4.8-10.8)
[2020-06-12 06:54] LABS: BURR CELLS FEW; OVALOCYTES FEW; PLATELET SUFFICIENCY NORMAL (NORMAL); SCHISTOCYTES FEW; TOTAL CELLS COUNTED 100 #CELLS
[2020-06-12 07:06] LABS: MEAN CELL VOLUME 89.4 fl (81.0-99.0); MEAN CORPUSCULAR HGB 28.8 pg (27.0-31.0); MEAN CORPUSCULAR HGB CONC 32.2 g/dl (33.0-37.0); MEAN PLATELET VOLUME 11.7 fl (9.6-12.3); PLATELET COUNT AUTOMATED 137 10*3/uL (130-400); RED BLOOD COUNT 3.58 10*6/uL (4.10-5.10); RED CELL DISTRI WIDTH 14.8 % (0-14.5)
[2020-06-12 07:12] LABS: WHITE BLOOD COUNT 1.6 10*3/uL (4.8-10.8)
[2020-06-12 07:27] LABS: PLATELET SUFFICIENCY NORMAL (NORMAL); TOTAL CELLS COUNTED 100 #CELLS
[2020-06-12 07:29] LABS: BURR CELLS FEW; OVALOCYTES FEW
[2020-06-12 08:00] VITALS: BP 140/94
[2020-06-12 12:00] VITALS: BP 94/58
[2020-06-12 16:00] VITALS: BP 151/61
[2020-06-12 20:00] VITALS: BP 166/74
[2020-06-13] VITALS: BP 168/92
[2020-06-13 04:47] LABS: HEMATOCRIT 34.7 % (37.0-47.0); LYMPH # 0.4 10*3/uL (1.3-4.4); MEAN CELL VOLUME 89.2 fl (81.0-99.0); MEAN CORPUSCULAR HGB 28.3 pg (27.0-31.0); MEAN CORPUSCULAR HGB CONC 31.7 g/dl (33.0-37.0); MEAN PLATELET VOLUME 11.8 fl (9.6-12.3); MONO # 0.2 10*3/uL (0.1-1.0); NEUT # 2.5 10*3/uL (2.3-7.9); NEUT % 81.7 % (47.0-73.0); PLATELET COUNT AUTOMATED 173 10*3/uL (130-400); RED BLOOD COUNT 3.89 10*6/uL (4.10-5.10); RED CELL DISTRI WIDTH 14.9 % (0-14.5)
[2020-06-13 05:01] LABS: BUN 19 mg/dl (7-24); CHLORIDE 109 mmol/L (98-107); CREATININE 0.88 mg/dL (0.55-1.02); POTASSIUM 4.3 mmol/L (3.5-5.1); SODIUM 140 mmol/L (136-145)
[2020-06-13 08:00] VITALS: BP 192/90
[2020-06-13 12:00] VITALS: BP 136/70
[2020-06-13 16:00] VITALS: BP 160/86
[2020-06-13 20:00] VITALS: BP 134/83
[2020-06-14] VITALS: BP 174/78
[2020-06-14 06:57] LABS: HEMATOCRIT 33.9 % (37.0-47.0); LYMPH # 0.4 10*3/uL (1.3-4.4); LYMPH % 8.1 % (27.0-41.0); MEAN CELL VOLUME 87.8 fl (81.0-99.0); MEAN PLATELET VOLUME 11.4 fl (9.6-12.3); MONO # 0.3 10*3/uL (0.1-1.0); MONO % 6.8 % (3.0-9.0); NEUT # 3.9 10*3/uL (2.3-7.9); NEUT % 83.8 % (47.0-73.0); PLATELET COUNT AUTOMATED 218 10*3/uL (130-400); RED BLOOD COUNT 3.86 10*6/uL (4.10-5.10); RED CELL DISTRI WIDTH 14.7 % (0-14.5); WHITE BLOOD COUNT 4.7 10*3/uL (4.8-10.8)
[2020-06-14 07:08] LABS: BUN 20 mg/dl (7-24); CHLORIDE 106 mmol/L (98-107); CREATININE 0.87 mg/dL (0.55-1.02); POTASSIUM 4.2 mmol/L (3.5-5.1); SODIUM 137 mmol/L (136-145)
[2020-06-14 08:00] VITALS: BP 186/88
[2020-06-14] MEDS ORDERED: MUCUS RELIEF600 MG PO (11:30)
[2020-06-14] MEDS ORDERED: DECADRON6 M1 PO (11:30)
== END 2020-06-14 13:38 | disposition home health service (06) | DRG 177 ==
LOC: ED 13:34 → 4E 16:46 → EDHOLD 16:46 → 4E 17:50
PROVIDERS: Emergency Medicine; Internal Medicine; Student in an Organized Health Care Education/Training Program; ADMIT Student in an Organized Health Care Education/Training Program; ATTEND Student in an Organized Health Care Education/Training Program
PROC: XW033E5 Introduction of Remdesivir Anti-infective into Peripheral Vein, Percutaneous Approach, New Technology Group 5 (ICD-10-PCS; principal; 2020-06-12)
DX: U07.1 COVID-19 (principal); J96.01 Acute respiratory failure with hypoxia; N17.0 Acute kidney failure with tubular necrosis; J12.82 Pneumonia due to coronavirus disease 2019; N30.01 Acute cystitis with hematuria; E44.0 Moderate protein-calorie malnutrition; E87.2 Acidosis; I48.21 Permanent atrial fibrillation; D61.818 Other pancytopenia; I48.91 Unspecified atrial fibrillation; R73.9 Hyperglycemia, unspecified; E83.41 Hypermagnesemia; I10 Essential (primary) hypertension; E03.9 Hypothyroidism, unspecified; M54.5 Low back pain; G89.29 Other chronic pain; D64.9 Anemia, unspecified; E53.8 Deficiency of other specified B group vitamins; K21.9 Gastro-esophageal reflux disease without esophagitis; D72.810 Lymphocytopenia; E87.6 Hypokalemia; Z79.899 Other long term (current) drug therapy; Z88.5 Allergy status to narcotic agent; Z79.1 Long term (current) use of non-steroidal anti-inflammatories (NSAID)

== ENCOUNTER 2020-11-20 22:09 | Emergency (ER) | payer MEDICARE ==
[~2020-11-20] VITALS: Ht 160 cm; Wt 72.3 kg
[~2020-11-20 22:09] MED LIST changes: +DECADRON6 M1 PO; +MUCUS RELIEF600 MG PO
[2020-11-21] MEDS ORDERED: NAPROXEN250 MG PO (00:18)
== END 2020-11-21 01:45 | disposition home or self-care (01) ==
LOC: ED 22:09
DX: S20.212A Contusion of left front wall of thorax, initial encounter (principal); M25.512 Pain in left shoulder; M25.561 Pain in right knee; Z88.6 Allergy status to analgesic agent; Z79.899 Other long term (current) drug therapy; W18.39XA Other fall on same level, initial encounter; Y93.89 Activity, other specified; Y92.89 Other specified places as the place of occurrence of the external cause; Y99.8 Other external cause status

== ENCOUNTER 2021-03-06 10:40 | Emergency (ER) | payer MEDICARE ==
[~2021-03-06] VITALS: Ht 160 cm; Wt 72.6 kg
[~2021-03-06 10:40] MED LIST changes: +NAPROXEN250 MG PO
[2021-03-06 11:49] LABS: BASO % 0.7 % (0.0-1.0); EOS # 0.2 10*3/uL (0.0-0.4); EOS % 4.3 % (1.0-4.0); HEMATOCRIT 35.2 % (37.0-47.0); LYMPH # 0.9 10*3/uL (1.3-4.4); LYMPH % 20.6 % (27.0-41.0); MEAN CELL VOLUME 89.6 fl (81.0-99.0); MEAN CORPUSCULAR HGB 28.5 pg (27.0-31.0); MEAN CORPUSCULAR HGB CONC 31.8 g/dl (33.0-37.0); MONO # 0.4 10*3/uL (0.1-1.0); MONO % 8.5 % (3.0-9.0); NEUT # 2.8 10*3/uL (2.3-7.9); NEUT % 65.9 % (47.0-73.0); PLATELET COUNT AUTOMATED 166 10*3/uL (130-400); RED BLOOD COUNT 3.93 10*6/uL (4.10-5.10); WHITE BLOOD COUNT 4.2 10*3/uL (4.8-10.8)
[2021-03-06 12:04] LABS: ALBUMIN 3.3 gm/dl (3.1-4.5); CREATININE 1.55 mg/dL (0.55-1.02); POTASSIUM 4.3 mmol/L (3.5-5.1); TOTAL PROTEIN 6.4 gm/dL (6.4-8.2)
== END 2021-03-06 13:04 | disposition left against medical advice (07) ==
LOC: ED 10:40
PROVIDERS: Student in an Organized Health Care Education/Training Program
DX: G45.9 Transient cerebral ischemic attack, unspecified (principal); Z88.6 Allergy status to analgesic agent; Z79.899 Other long term (current) drug therapy

== ENCOUNTER 2021-07-05 14:31 | Inpatient (IN) | payer MEDICARE ==
[~2021-07-05] VITALS: Ht 160 cm; Wt 73.7 kg
[2021-07-05 14:39] VITALS: BP 116/52
[2021-07-05 15:09] LABS: BASO % 0.6 % (0.0-1.0); EOS # 0.1 10*3/uL (0.0-0.4); EOS % 1.5 % (1.0-4.0); HEMATOCRIT 34.6 % (37.0-47.0); LYMPH # 0.9 10*3/uL (1.3-4.4); MEAN CELL VOLUME 89.4 fl (81.0-99.0); MEAN CORPUSCULAR HGB 27.9 pg (27.0-31.0); MEAN CORPUSCULAR HGB CONC 31.2 g/dl (33.0-37.0); MEAN PLATELET VOLUME 10.1 fl (9.6-12.3); MONO # 0.6 10*3/uL (0.1-1.0); MONO % 10.6 % (3.0-9.0); NEUT # 3.8 10*3/uL (2.3-7.9); NEUT % 70.1 % (47.0-73.0); PLATELET COUNT AUTOMATED 218 10*3/uL (130-400); RED BLOOD COUNT 3.87 10*6/uL (4.10-5.10); RED CELL DISTRI WIDTH 14.2 % (0-14.5); WHITE BLOOD COUNT 5.4 10*3/uL (4.8-10.8)
[2021-07-05 15:26] LABS: CREATININE 1.46 mg/dL (0.55-1.02); POTASSIUM 3.6 mmol/L (3.5-5.1); TOTAL PROTEIN 6.1 gm/dL (6.4-8.2)
[2021-07-05 18:57] LABS: BILIRUBIN Negative (Negative); BLOOD Negative (Negative); CLARITY Cloudy (Clear); COLOR Yellow (Yellow); GLUCOSE Negative (Negative); KETONE Negative (Negative); LEUKO ESTERASE 2+ (Negative); NITRITE Negative (Negative); SPECIFIC GRAVITY 1.015 (1.001-1.030)
[2021-07-05 19:14] LABS: EPITHELIAL CELLS 21-30; WBC 41-50 wbc/hpf (0-5)
[2021-07-05 19:15] LABS: BACTERIA 3+; YEAST 2+
[2021-07-05 20:41] VITALS: BP 161/76
[2021-07-05 20:55] VITALS: BP 156/72
[2021-07-05] MEDS ORDERED: ASPIRIN81 M1 PO (21:12)
[2021-07-05] MEDS ORDERED: IRBESARTAN300 M1 PO (21:15)
[2021-07-05] MEDS ORDERED: POTASSIUM CHLO10 ME4 PO (21:16)
[2021-07-05] MEDS ORDERED: LASIX20 MG PO (21:17)
[2021-07-05] MEDS ORDERED: LABETALOL HCL200 MG PO (21:18)
[2021-07-05] MEDS ORDERED: MELATONIN10 M4 PO (21:18)
[2021-07-05] MEDS ORDERED: CLARITIN10 MG PO (21:19)
[2021-07-06] VITALS (9 sets, daily range): BP systolic 148–212; BP diastolic 72–98
[2021-07-06 05:22] LABS: CREATININE 1.11 mg/dL (0.55-1.02); POTASSIUM 3.6 mmol/L (3.5-5.1); TOTAL PROTEIN 5.6 gm/dL (6.4-8.2)
[2021-07-06 05:23] LABS: FREE T4 1.05 ng/dl (0.76-1.46)
[2021-07-06 05:27] LABS: THYROID STIM HORMONE (HS) 0.514 uIU/ml (0.358-4.75)
[2021-07-06 06:11] LABS: BASO % 0.7 % (0.0-1.0); EOS # 0.1 10*3/uL (0.0-0.4); EOS % 1.5 % (1.0-4.0); HEMATOCRIT 32.4 % (37.0-47.0); LYMPH # 1.3 10*3/uL (1.3-4.4); LYMPH % 30.6 % (27.0-41.0); MEAN CELL VOLUME 89.8 fl (81.0-99.0); MEAN CORPUSCULAR HGB 29.1 pg (27.0-31.0); MEAN CORPUSCULAR HGB CONC 32.4 g/dl (33.0-37.0); MEAN PLATELET VOLUME 11.2 fl (9.6-12.3); MONO # 0.5 10*3/uL (0.1-1.0); MONO % 12.7 % (3.0-9.0); NEUT # 2.2 10*3/uL (2.3-7.9); NEUT % 54.5 % (47.0-73.0); PLATELET COUNT AUTOMATED 203 10*3/uL (130-400); RED BLOOD COUNT 3.61 10*6/uL (4.10-5.10); RED CELL DISTRI WIDTH 13.9 % (0-14.5); WHITE BLOOD COUNT 4.1 10*3/uL (4.8-10.8)
[2021-07-07] VITALS (11 sets, daily range): BP systolic 156–218; BP diastolic 64–103
[2021-07-07 05:23] LABS: BUN 10 mg/dl (7-24); CHLORIDE 113 mmol/L (98-107); CREATININE 0.91 mg/dL (0.55-1.02); POTASSIUM 3.7 mmol/L (3.5-5.1); SODIUM 143 mmol/L (136-145)
[2021-07-07 06:18] LABS: BASO % 0.5 % (0.0-1.0); EOS # 0.1 10*3/uL (0.0-0.4); EOS % 2.2 % (1.0-4.0); HEMATOCRIT 35.4 % (37.0-47.0); LYMPH % 18.1 % (27.0-41.0); MEAN CELL VOLUME 90.3 fl (81.0-99.0); MEAN CORPUSCULAR HGB 27.8 pg (27.0-31.0); MEAN CORPUSCULAR HGB CONC 30.8 g/dl (33.0-37.0); MEAN PLATELET VOLUME 10.8 fl (9.6-12.3); MONO # 0.4 10*3/uL (0.1-1.0); NEUT # 3.9 10*3/uL (2.3-7.9); PLATELET COUNT AUTOMATED 209 10*3/uL (130-400); RED BLOOD COUNT 3.92 10*6/uL (4.10-5.10); RED CELL DISTRI WIDTH 14.1 % (0-14.5); WHITE BLOOD COUNT 5.5 10*3/uL (4.8-10.8)
[2021-07-07] MEDS ORDERED: CLONIDINE HCL0.1 MG PO ×2 (12:57)
[2021-07-07] MEDS ORDERED: LABETALOL HCL100 MG PO ×2 (12:57)
[2021-07-08] VITALS: BP 189/101
[2021-07-08 00:45] VITALS: BP 183/95
[2021-07-08 06:08] LABS: BASO % 0.3 % (0.0-1.0); EOS # 0.1 10*3/uL (0.0-0.4); EOS % 1.6 % (1.0-4.0); HEMATOCRIT 32.5 % (37.0-47.0); LYMPH % 15.8 % (27.0-41.0); MEAN CELL VOLUME 89.3 fl (81.0-99.0); MEAN CORPUSCULAR HGB CONC 31.4 g/dl (33.0-37.0); MEAN PLATELET VOLUME 11.3 fl (9.6-12.3); MONO # 0.4 10*3/uL (0.1-1.0); MONO % 5.9 % (3.0-9.0); NEUT # 4.7 10*3/uL (2.3-7.9); NEUT % 76.1 % (47.0-73.0); PLATELET COUNT AUTOMATED 203 10*3/uL (130-400); RED BLOOD COUNT 3.64 10*6/uL (4.10-5.10); RED CELL DISTRI WIDTH 14.1 % (0-14.5); WHITE BLOOD COUNT 6.1 10*3/uL (4.8-10.8)
[2021-07-08 06:20] LABS: BUN 6 mg/dl (7-24); CHLORIDE 115 mmol/L (98-107); POTASSIUM 3.8 mmol/L (3.5-5.1); SODIUM 143 mmol/L (136-145)
[2021-07-08 06:22] LABS: CREATININE 0.84 mg/dL (0.55-1.02)
[2021-07-08 08:00] VITALS: BP 189/102
[2021-07-08 12:00] VITALS: BP 177/104; BP 187/94
[2021-07-08 15:33] VITALS: BP 172/100
[2021-07-08 20:00] VITALS: BP 158/90
[2021-07-09] VITALS (8 sets, daily range): BP systolic 144–196; BP diastolic 74–110
[2021-07-09 06:01] LABS: BUN 7 mg/dl (7-24); CHLORIDE 113 mmol/L (98-107); CREATININE 0.78 mg/dL (0.55-1.02); POTASSIUM 3.7 mmol/L (3.5-5.1); SODIUM 143 mmol/L (136-145)
[2021-07-09 06:11] LABS: BASO % 0.4 % (0.0-1.0); EOS # 0.1 10*3/uL (0.0-0.4); EOS % 1.3 % (1.0-4.0); HEMATOCRIT 29.9 % (37.0-47.0); LYMPH # 0.9 10*3/uL (1.3-4.4); LYMPH % 16.3 % (27.0-41.0); MEAN CELL VOLUME 86.9 fl (81.0-99.0); MEAN CORPUSCULAR HGB 28.2 pg (27.0-31.0); MEAN CORPUSCULAR HGB CONC 32.4 g/dl (33.0-37.0); MEAN PLATELET VOLUME 11.4 fl (9.6-12.3); MONO # 0.4 10*3/uL (0.1-1.0); MONO % 6.8 % (3.0-9.0); NEUT % 74.8 % (47.0-73.0); PLATELET COUNT AUTOMATED 173 10*3/uL (130-400); RED BLOOD COUNT 3.44 10*6/uL (4.10-5.10); RED CELL DISTRI WIDTH 14.1 % (0-14.5); WHITE BLOOD COUNT 5.3 10*3/uL (4.8-10.8)
[2021-07-09] MEDS ORDERED: 'CLONIDINE0.1 MG PO (11:12)
[2021-07-09] MEDS ORDERED: NORMODYNE,TRAN200 MG PO (11:12)
[2021-07-09] MEDS ORDERED: LOSARTAN POTAS100 M1 PO (11:12)
== END 2021-07-09 14:15 | disposition home or self-care (01) | DRG 304 ==
LOC: ED 14:31 → 4E 18:18 → EDHOLD 18:18 → 4E 18:28
PROVIDERS: Family Medicine; Internal Medicine; Physician Assistant; ADMIT Internal Medicine; ATTEND Internal Medicine
DX: I16.0 Hypertensive urgency (principal); N17.0 Acute kidney failure with tubular necrosis; E44.0 Moderate protein-calorie malnutrition; I48.21 Permanent atrial fibrillation; E86.0 Dehydration; R82.71 Bacteriuria; N18.9 Chronic kidney disease, unspecified; I12.9 Hypertensive chronic kidney disease with stage 1 through stage 4 chronic kidney disease, or unspecified chronic kidney disease; D64.9 Anemia, unspecified; R73.9 Hyperglycemia, unspecified; E03.9 Hypothyroidism, unspecified; M54.9 Dorsalgia, unspecified; I08.3 Combined rheumatic disorders of mitral, aortic and tricuspid valves; G89.29 Other chronic pain; K21.9 Gastro-esophageal reflux disease without esophagitis; I27.20 Pulmonary hypertension, unspecified; E53.8 Deficiency of other specified B group vitamins; E55.9 Vitamin D deficiency, unspecified; Z86.73 Personal history of transient ischemic attack (TIA), and cerebral infarction without residual deficits; Z68.28 Body mass index [BMI] 28.0-28.9, adult; Z88.5 Allergy status to narcotic agent; Z79.899 Other long term (current) drug therapy